=== PATIENT | male | born 1970 | race Caucasian/White ===

== ENCOUNTER 2017-08-02 08:46 | Emergency (ER) | payer BC, SELFPAY ==
[2017-08-02 09:12] VITALS: BP 121/70; PULSE 82; RESP 16; TEMP 36.8; O2SAT 96; BMI 27.4
--- NOTE | 2017-08-02 09:19 | [facility].EDGENADL ---
ED Disposition Clinical Impression: Acute eye pain Disposition: Home, Self-Care Condition on Discharge: Fair Additional Instructions: See Dr. Lozano in his office in 1 hour. - Critical Care Critical Care Time: No Attestation: On 08/02/17, the high probability of a clinically significant, sudden or life threatening deterioration of the following system(s) required my full and direct attention, intervention and personal management. The time I documented below is in addition to time spent performing reported procedures but includes the following listed in this critical care notation. Medical Decision Making Vital Signs: 08/02/17 09:12 Temperature 98.2 F Temperature Source Oral Pulse Rate [Right Brachial] 82 Respiratory Rate 16 Blood Pressure [Right Arm] 121/70 Blood Pressure Mean [Right Arm] 87 Blood Pressure Source [Right Arm] Automatic Cuff Blood Pressure Position [Right Arm] Sitting 02 Sat by Pulse Oximetry 96 Oxygen Delivery Method Room Air - Ruslan Inquiry Pt receiving controlled substance: No Medical Decision Making Narrative: 9:47 AM: Case discussed with Dr. Lozano. He will see the patient in his office in 1 hour. General Adult HPI - General Chief complaint: Eye Problems Stated complaint: AO [id number] FO in r eye Mode of Arrival: Ambulatory Limitations: No Limitations Description of Symptoms (Recalled from ER Triage Doc. by RN): Pt reports possible FB in R eye x3 days - History of Present Illness HPI narrative: He states that 3 days ago after work he noticed irritation of his right eye. He has a foreign body sensation as well as photophobia. He thinks that he possibly got concrete in his eyes. 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 He says he has had concrete his eyes before and is always been able to get it out, but is unable to get this out. Symptoms are predominantly right eye, but to a lesser extent left eye. He has injection of both eyes. He wears glasses for visual correction, does not wear contact lenses, does not have an director environmental. He gets his vision exams and glasses at [facility]. - Related Data Home Medications Medication Instructions Recorded Confirmed No Known Home Medications [No 08/02/17 08/02/17 Known Home Medications] Allergies Allergy/AdvReac Type Severity Reaction Status Date / Time No Known Allergies Allergy Verified 08/02/17 09:19 [facility] History I have reviewed the patient's past medical history: Yes Medical History: Denies:: Diabetes Mellitus Type 1, Diabetes Mellitus Type 2 - Social History Smoking Status: Never smoker Tobacco Type: smokeless tobacco Alcohol Intake: never - Psychiatric History Expresses thoughts of harming self/others: None Suicide Plan Description: No Plan ROS Obtained: Yes Systems reviewed as appropriate & no additional complaints - Eyes Eyes: Reports as per HPI, Reports change in vision (A little blurry), Reports irritation Physical Exam - General General appearance: alert, in distress (Mild due to eye pain) - Eye Eye exam: Present: PERRL, EOMI, conjunctival redness, conjunctival injection. Absent: discharge - Expanded Eye Exam Pupils: Bilateral: regular, round, reactive Sclera/Conjunctival: bilateral: injection Anterior chamber: bilateral: normal inspection Visual acuity (R) = 20/: 40 Visual acuity (L) = 20/: 30 With correction: Yes Comment: Small amount of patchy uptake of fluorescein inferior cornea bilaterally. Lids everted, no foreign bodies found, lids swept with Q-tip. No corneal foreign body seen. Pain relieved with tetracaine. - ENT ENT exam: Present: TM's normal bilaterally - Respiratory Respiratory exam: Absent: respiratory distress - Cardiovascular Cardiovascular exam: Present: regular rate - Neurological Exam Neurological exam: Present: alert, oriented X3
--- NOTE | 2017-08-02 09:45 | PC.NURSE ---
YUMIKO DAVIES speaking with Dr. Lozano
[2017-08-02 10:06] VITALS: BP 140/61; PULSE 75; RESP 16; TEMP 36.9; O2SAT 97
== END 2017-08-02 10:09 | disposition home or self-care (01) ==
LOC: UTC 08:58 → ER 09:10
PROVIDERS: Emergency Provider Nurse Practitioner Family; Family Provider Emergency Medicine
DX: H57.11 Ocular pain, right eye (principal); H57.12 Ocular pain, left eye
CPT/HCPCS: 99281